=== PATIENT | male | born 1955 | race Caucasian/White ===

== ENCOUNTER 2016-04-01 21:33 | Emergency (ER) | payer OTHER ==
[~2016-04-01] VITALS: Ht 165.1 cm; Wt 66.0 kg
[2016-04-01] MEDS ORDERED: SOD CHLORIDE 0.9% 1,000 ML IV STA (21:35)
[2016-04-01] MEDS ORDERED: ONDANSETRON 4 MG INJ IV STA (21:35)
[2016-04-01] MEDS ORDERED: morphine 4 MG/ML VIAL IV STA ×2 (21:35→22:37)
[2016-04-01 21:40] VITALS: Ht 165.1 cm; Wt 66.0 kg
[2016-04-01] MEDS ORDERED: DIPHTH/TET/ACEL PERTUSS (ADULT) 0.5 ML VIAL IM* ONE (22:00)
[2016-04-01] MEDS ORDERED: TAMS0.4C2 PO (22:16)
[2016-04-01] MEDS ORDERED: ASPI-664 PO (22:16)
[2016-04-01 22:17] LABS: BASOPHIL # 0.1 10^3/ul (0.0-0.1); EOSINOPHILS # 0.1 10^3/ul (0.0-0.5); HEMATOCRIT 43.3 % (42.0-52.0); HEMOGLOBIN 14.7 g/dl (14.0-18.0); LYMPHOCYTES # 2.2 10^3/ul (0.8-2.9); LYMPHOCYTES % 31.5 % (15.0-51.0); MEAN CORPUSCULAR HEMOGLOBIN 31.3 pg (29.0-33.0); MEAN CORPUSCULAR HGB CONC 33.9 g/dl (32.0-37.0); MEAN CORPUSCULAR VOLUME 92.4 fl (82.0-101.0); MEAN PLATELET VOLUME 9.1 fl (7.4-10.4); MONOCYTE # 0.6 10^3/ul (0.3-0.9); MONOCYTES % 8.5 % (0.0-11.0); NEUTROPHIL # 3.9 10^3/ul (1.6-7.5); PLATELET COUNT 240 10^3/UL (140-440); RED BLOOD COUNT 4.68 10^6/ul (4.70-6.10); RED CELL DISTRIBUTION WIDTH 13.6 % (11.5-14.5); UNCORRECTED WBC 6.9 10^3/ul (4.8-10.8); WHITE BLOOD COUNT 6.9 10^3/ul (4.8-10.8)
[2016-04-01] MEDS ORDERED: FLUT9.9S NASAL (22:17)
[2016-04-01 22:19] LABS: CONDITION 1
[2016-04-01 22:27] LABS: INR 0.96; PARTIAL THROMBOPLASTIN TIME 27.2 Sec (25.0-35.0); PROTIME 12.8 Sec (12.2-14.2)
[2016-04-01 22:33] LABS: POTASSIUM 3.6 mmol/L (3.5-5.1)
[2016-04-01 22:35] LABS: CREATININE 0.9 mg/dl (0.61-1.24)
[2016-04-01 22:36] LABS: CALCIUM 9.1 mg/dl (8.4-10.2)
[2016-04-01] MEDS ORDERED: LIDOCAINE 1% (MDV) 20 ML INJ ONE (23:04)
[2016-04-01] MEDS ORDERED: LIDOCAINE 1% (MDV) 20 ML INJ SC ONE (23:30)
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
[2016-04-02] MEDS ORDERED: BACTDS PO (00:49)
[2016-04-02] MEDS ORDERED: CEPH-443 PO (00:49)
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
[2016-04-02 01:09] VITALS: BP 145/87; PULSE 78; RESP 20; TEMP 98
== END 2016-04-02 01:12 | disposition home or self-care (01) ==
LOC: E/R 21:33
DX: S01.311A Laceration without foreign body of right ear, initial encounter (principal); S61.411A Laceration without foreign body of right hand, initial encounter; S61.412A Laceration without foreign body of left hand, initial encounter; S81.812A Laceration without foreign body, left lower leg, initial encounter; S01.81XA Laceration without foreign body of other part of head, initial encounter; Y08.89XA Assault by other specified means, initial encounter; Z23 Encounter for immunization; Z79.82 Long term (current) use of aspirin
CPT/HCPCS: 12004; 12013; 36415; 70450; 73130; 73590; 80048; 85025; 85610; 85730; 86850; 86900; 86901; 90471; 90715; 96374; 96375; 96376; J2270; J2405; J7030; Z7502; Z7610